=== PATIENT | female | born 1965 | race Caucasian/White ===

== ENCOUNTER 2020-02-03 15:57 | Emergency (ER) | payer BC ==
[~2020-02-03] VITALS: Ht 167.6 cm; Wt 59.9 kg
[2020-02-03 16:08] VITALS: Ht 167.6 cm; Wt 59.9 kg
[2020-02-03 17:12] LABS: BASOPHIL % 0.3 % (0-2); CALCIUM 8.9 mg/dL (8.5-10.1); CARBON DIOXIDE 28.4 mmol/L (21-32); CHLORIDE SERUM 102 mmol/L (98-107); CREATININE SERUM 0.7 mg/dL (0.6-1.0); GFR1 > 60 mL/min; GLUCOSE SERUM 96 mg/dL (74-106); PLATELET COUNT 287 x10^3mcL (130-400); POTASSIUM SERUM 3.5 mmol/L (3.5-5.1); RED CELL DISTRIBUTION WIDTH 12.8 % (11.5-14.5); SODIUM SERUM 139 mmol/L (136-145)
[2020-02-03 17:17] LABS: ALKALINE PHOSPHATASE 84 U/L (46-116); ALT/SGPT 58 U/L (14-59); AST/SGOT 35 U/L (15-37); BILIRUBIN TOTAL 0.69 mg/dL (0.20-1.00); TOTAL PROTEIN, SERUM 7.4 g/dL (6.4-8.2)
[2020-02-03 18:45] VITALS: BP 132/68
== END 2020-02-03 18:45 | disposition home or self-care (01) ==
LOC: ED 15:57
PROVIDERS: Emergency Medicine
DX: R07.89 Other chest pain (principal); R11.0 Nausea; R61 Generalized hyperhidrosis; Z88.5 Allergy status to narcotic agent; Z88.8 Allergy status to other drugs, medicaments and biological substances
CPT/HCPCS: 83880; Q0092